=== PATIENT | male | born 1960 | race Caucasian/White ===

== ENCOUNTER → 2017-05-12 16:06 | Outpatient (CLI) | payer BC, SELFPAY ==
--- NOTE | 2017-05-12 12:01 | EGD_PTH ---
PATIENT: ADAN BERGMAN LOC: [facility] U#:[id number] AGE/SX: 64/M ROOM: RE05/12/[address]: Dr. Min Howard MD : 1960 BED: DIS: SPEC #: [id number] RECD: 05/12/17 15:35 STATUS: NYLA SANTOS #: [id number] GIANCARLO: 05/12/17 12:[address]: Min Howard DEPT: SURGICAL PATHOLOGY RECD BY: Derek Russell ENTERED: 05/15/17 10:36 SP TYPE: EGD BIOPSY OTHR DR: Dr. Chichi Narayan, [facility] Tissues: Esophageal mucous membrane Procedures: Surgery Specimen Level IV HEADER OPERATION: EGD with biopsies PRE-OP DIAGNOSIS: Dysphagia TISSUE SUBMITTED: Esophageal biopsies, rule out EE MICROSCOPIC DIAGNOSIS Esophagus, biopsy: Fragments of squamous mucosa with no significant pathologic change. AM:scar 05/16/17 COMMENT There is no evidence of eosinophilic esophagitis. Clinical correlation is suggested. MICROSCOPIC DESCRIPTION Slides are reviewed. GROSS DESCRIPTION Received in fixative is one container labeled with the patient's name and designated esophageal biopsy. The specimen consists of multiple irregular fragments of light hankins soft tissue that in aggregate measure 0.8 x 0.2 x 0.1 cm. The specimen is totally submitted in one cassette. / SJ:rg 05/15/17 TC:5 CPT: 87978
== END ==
PROVIDERS: Family Provider Internal Medicine; PCP Internal Medicine; Visit Provider Internal Medicine Gastroenterology
DX: R13.10 Dysphagia, unspecified (principal)
CPT/HCPCS: 88305

== ENCOUNTER → 2018-05-10 07:58 | Outpatient (CLI) | payer BC, SELFPAY ==
--- NOTE | 2018-05-10 08:02 | RAD_ITS ---
STUDY: X-RAY CHEST REASON FOR EXAM: Male, 57 years old. Cough. TECHNIQUE: PA and lateral views of the chest. COMPARISON: Comparison is made with prior study dated April 14, 2017. FINDINGS: Mild degree of increased linear markings at the lung bases suggestive of a filling atelectasis and/or mild scarring. There is no demonstrated pleural abnormality. Normal size heart. Normal mediastinum and ellen. Normal visualized pulmonary arteries. Normal visualized aortic arch and descending thoracic aorta. Normal visualized thoracic spine. Normal visualized ribs, clavicles, and shoulders. There is no demonstrated abnormality of the visualized soft tissue structures of the upper abdomen. RAD/Chest PA and Lateral IMPRESSION: Mild degree of increased linear markings at the lung bases suggestive of linear atelectasis and/or scarring. Electronically Signed: Young Lopez MD at 8:54 EST , Service support ,
== END ==
PROVIDERS: Family Provider Internal Medicine; PCP Internal Medicine; Referring Provider Nurse Practitioner Gerontology; Visit Provider Nurse Practitioner Gerontology
DX: R09.89 Other specified symptoms and signs involving the circulatory and respiratory systems (principal)
CPT/HCPCS: 71046

== ENCOUNTER → 2019-12-24 14:41 | Outpatient (CLI) | payer SELFPAY ==
[2019-12-24 14:52] VITALS: BP 130/52; PULSE 62; RESP 18; TEMP 36.6; O2SAT 95; BMI 30.1
--- NOTE | 2019-12-24 15:00 | CT_ITS ---
STUDY: CARDIAC CALCIUM SCORING - CT CHEST REASON FOR EXAM: Male, 59 years old. BOARDER LINE HIGH CHOLESTEROL. CHEST OVER READ ONLY RADIATION DOSAGE (If Supplied By Facility): CTDIvol = ( 12.19 ) mGy, DLP = ( 219.42 ) mGycm TECHNIQUE: Axial non-enhanced images were acquired through the heart for the sole purpose of measuring coronary artery calcium. Individualized dose optimization techniques were used for this CT. COMPARISON: None. FINDINGS: Visualized surrounding anatomy: Normal. Left Main Coronary Artery: 0 Left Anterior Descending Artery: 0 Left Circumflex Artery: 0 Right Coronary Artery: 0 Other: Mild calcification of the aortic valve Total Calcium Score: 0 CT/Limited Chest CT w/CCTA IMPRESSION: A Calcium Score of 0 places the patient in the approximate 0 percentile, based on the [employer] data calculator. Please go to: [email or web address] , for a description of the calculator. Electronically Signed: Juan Gamboa MD at 16:06 EDT , Service support ,
--- NOTE | 2019-12-24 17:15 | CA.SCORE ---
Calcium Scoring Date of Study:: 12/24/19 Coronary Calcium Scoring: High-resolution Computed Tomographic imaging of the chest was performed on [12/24/2019], with particular attention paid to the coronary arteries. Images from the examination were analyzed for the presence and extent of coronary artery calcification , using coronary calcium quantification software. The patient tolerated the procedure well and there were no complications. The results of the coronary calcification analysis are provided below. - Findings Left Main (LM): 0 Left Anterior Descending (LAD): 0 Left Circumflex (LCX): 0 Right Coronary Artery (RCA): 0 Total Agatston Score: 0 Calcium Scoring Interpretation: 0 No identifiable atherosclerotic plaque. Very low cardiovascular disease risk. <5% chance of presence coronary artery disease A Negative Examination 1-10 Minimal Plaque burden. Significant coronary artery disease very unlikely. 11-100 Mild plaque burden. Likely mild or minimal coronary atherosclerosis. 101-400 Moderate plaque burden Moderate non-obstructive coronary artery disease highly likely. Over 400 Extensive plaque burden. High likelihood of at least one significant coronary stenosis (>50% diameter) Calcium Score: 0 Negative Examination - The above is suggestive of no obstructive coronary disease. A full evaluation of cardiac risk factors should include a complete assessment of all risk factors.
== END ==
PROVIDERS: PCP Internal Medicine; Referring Provider Internal Medicine; Visit Provider Internal Medicine
DX: E78.00 Pure hypercholesterolemia, unspecified (principal)
CPT/HCPCS: 75571; 76380

== ENCOUNTER 2021-03-26 12:17 | Emergency (ER) | payer BC, SELFPAY ==
[2021-03-26 12:17] VITALS: BP 110/85; PULSE 64; RESP 20; TEMP 36.9; O2SAT 98; BMI 30.3
--- NOTE | 2021-03-26 12:33 | EKG12_ITS ---
Test Reason : CHEST PAIN Blood Pressure : / mmHG Vent. Rate : 062 BPM Atrial Rate : 062 BPM P-R Int : 244 ms QRS Dur : 110 ms QT Int : 390 ms P-R-T Axes : 033 004 -02 degrees QTc Int : 395 ms Sinus rhythm with 1st degree A-V block Otherwise normal ECG Confirmed by DK YU, GRADY ([id number]), slot editor RHONDA DOLAN ([id number]) on 03/29/2021 10:48:26 AM Referred By: TYE Confirmed By:GRADY ROOT MD
--- NOTE | 2021-03-26 12:35 | RAD_ITS ---
STUDY: X-RAY CHEST REASON FOR EXAM: Male, 60 years old. Chest pain TECHNIQUE: Single AP portable view of the chest. COMPARISON: Comparison is made with prior study dated 05/10/2018. FINDINGS: EKG electrodes are seen. The lungs are clear and expanded. There is no demonstrated pleural abnormality. Normal size heart. Normal mediastinum and ellen. Normal visualized pulmonary arteries. Normal visualized aortic arch and descending thoracic aorta. Normal visualized thoracic spine. Normal visualized ribs, clavicles, and shoulders. There is no demonstrated abnormality of the visualized soft tissue structures of the upper abdomen. RAD/Chest 1 View (Portable) IMPRESSION: Normal x-ray examination of the chest. Electronically Signed: Young Lopez MD at 13:08 EST , Service support ,
[2021-03-26 12:43] LABS: Absolute Lymphocyte Count 3.23 X10^3/uL (0.83-4.51); Absolute Neutrophil Count 6.1 X10^3/uL (2.0-7.7); Basophil# 0.04 X10^3/uL; Basophil% 0.4 % (0-1); Eosinophil# 0.34 X10^3/uL; Eosinophils% 3.2 % (0-5); Hematocrit 42.7 % (40-54); Hemoglobin 14.7 g/dL (13.0-16.5); Lymphocyte # 3.23 X10^3/ul (0.83-4.51); Lymphocyte % 30.3 % (19-41); Mean Corp Hgb Conc 34.4 g/dL (32-36); Mean Corpuscular Hgb 31.3 pg (27.0-32.0); Mean Platelet Vol. 9.1 fl (6.2-12.0); Monocyte# 0.94 X10^3/uL; Monocyte% 8.8 % (0-10); NRBC Flagged by Analyzer 0 % (0-5); Neutrophil # 6.08 X10^3/uL (2.7-7.7); Neutrophil % 56.9 % (47-70); Platelet Count 227 K/mm3 (150-450); RBC Distribution Width SD 39.8 fl (35.1-43.9); Red Blood Count 4.69 M/mm3 (4.6-6.2); White Blood Count 10.7 K/mm3 (4.4-11.0)
[2021-03-26 12:55] LABS: Anion Gap 5 (5-15); BUN 15 mg/dL (7-18); BUN/Creat Ratio 13.6 RATIO (10-20); Calcium,Total 9.4 mg/dL (8.5-10.1); Chloride 109 mmol/L (98-107); EST Glomerular Filtration Rate 72 mL/min (>60); Est Glom Filt Rate - Afr Amer 87 mL/min (>60); Estimated Creatinine Clearance 72.82 ml/min; Glucose 74 mg/dL (74-106); Potassium 3.8 mmol/L (3.5-5.1); Sodium Level 143 mmol/L (136-145); Troponin-I HS 11 pg/mL (3.0-78.0)
--- NOTE | 2021-03-26 13:07 | EDS_ITS ---
HPI History of Present Illness Chief Complaint: Chest Pain Narrative Narrative: 49-year-old male presenting with chest pressure which started last evening. He states it has been fairly constant overnight. He states it is a little bit better now. He denies a cardiac history. He states he takes Crestor for hyperlipidemia and Synthroid for hypothyroidism. He does follow-up with a primary care physician regularly and states he has not had any abnormal blood work. Patient is not lightheaded, diaphoretic, short of breath with this chest pain. No history of DVT/PE and no risk factors. PFSH PFS Medical History Chest pain Hypothyroidism Pneumonia Home Medications ivermectin 21 mg PO Q7D 03/26/21 [History Last Taken Unknown] levothyroxine 125 mcg PO DAILY 03/26/21 [History Last Taken Unknown] rosuvastatin [Crestor] 10 mg PO DAILY 03/26/21 [History Last Taken Unknown] Allergy/AdvReac Type Severity Reaction Status Date / Time No Known Allergies Allergy Verified 12/24/19 14:56 Surgical History History of appendectomy Social History Smoking Status: Never smoker ROS ROS ED Constitutional Constitutional ED: Denies chills or fever(s) Eyes Eyes: Denies blurry vision or change in vision ENT ENT ED: Denies rhinorrhea or sore throat Cardiovascular Cardiovascular: Reports as per HPI Respiratory/Chest Respiratory/Chest: Denies cough or dyspnea Gastrointestinal Gastrointestinal: Denies abdominal pain, nausea or vomiting Genitourinary Genitourinary ED: Denies dysuria or hematuria Musculoskeletal Musculoskeletal: Denies back pain, myalgias or neck pain Integumentary Denies rash Neurologic Neurologic: Denies headache(s) or paresthesias Psychiatric Psychiatric: Denies anxiety or depression EXAM Physical Exam Const Vital Signs: 03/26/21 12:17 03/26/21 12:24 03/26/21 12:41 Temperature 98.4 F Temperature Source Temporal Pulse Rate 64 Respiratory Rate 20 H Respiratory Effort Normal Non-Labored Blood Pressure 110/85 H Blood Pressure Mean 93 Pulse Ox 98 Oxygen Delivery Method Room Air Room Air 03/26/21 14:32 Temperature Temperature Source Pulse Rate 58 L Respiratory Rate 15 Respiratory Effort Blood Pressure 139/78 H Blood Pressure Mean 98 Pulse Ox 96 Oxygen Delivery Method Room Air Positive well nourished General Appearance ED: NAD; Negative for pallor HEENT Reports moist mucous membranes normocephalic and atraumatic Eyes PERRL and EOMs intact bilaterally Resp normal respiratory effort Effort and Inspection: respiratory distress Cardio regular rate and regular rhythm Extremity normal to inspection General Extremety ED: Negative for edema or tenderness General Extremity: Negative for edema Neuro oriented x3 and CN's II-XII intact bilaterally Sensorium / Orientation: awake and alert Psych mental status grossly normal Skin no rashes or lesions noted and no wounds General Skin Exam: Negative for jaundice or pallor Heart Score History: Slightly/Non-Suspicious ECG: Normal Age: >45 - <65 years Risk Factors: No Risk Factors Score: 1 MDM MDM MDM Narrative Medical decision making narrative: Patient presenting for chest pain which has been present since last night. Patient states that he does not have a cardiac history. EKG on my interpretation shows a normal sinus rhythm with a ventricular rate of 62 bpm with first-degree AV block. Chest x-ray my interpretation is no acute cardiopulmonary process and radiologist agree. CBC is within normal limits BMP is within normal limits D-dimer is negative. High- sensitivity troponin is 11 initially and the 2-hour delta troponin is 11. I feel this rules out ACS. Given patient's negative work-up I feel he safe to be discharged home. He will follow-up with his PCP outpatient. Impression: 1. Chest pain noncardiac Lab Data Labs: Laboratory Results - last 24 hr 03/26/21 03/26/21 03/26/21 12:20 12:20 12:20 WBC 10.7 RBC 4.69 Hgb 14.7 Hct 42.7 MCV 91.0 MCH 31.3 MCHC 34.4 RDW Std Deviation 39.8 RDW Coeff of Gray 12.0 Plt Count 227 MPV 9.1 Immature Gran % (Auto) 0.400 Neut % (Auto) 56.9 Lymph % (Auto) 30.3 [place] % (Auto) 8.8 Eos % (Auto) 3.2 Baso % (Auto) 0.4 Absolute Neuts (auto) 6.1 Absolute Lymphs (auto) 3.23 Nucleated RBC % 0 D-Dimer Quant (PE/DVT) 0.34 Sodium 143 Potassium 3.8 Chloride 109 H Carbon Dioxide 29.0 Anion Gap 5 BUN 15 Creatinine 1.10 Estim Creat Clear Calc 72.82 Est GFR (MDRD) Af Amer 87 Est GFR (MDRD) Non-Af 72 BUN/Creatinine Ratio 13.6 Glucose 74 Calcium 9.4 Troponin I High Sens 11 03/26/21 14:39 WBC RBC Hgb Hct MCV MCH MCHC RDW Std Deviation RDW Coeff of Gray Plt Count MPV Immature Gran % (Auto) Neut % (Auto) Lymph % (Auto) [place] % (Auto) Eos % (Auto) Baso % (Auto) Absolute Neuts (auto) Absolute Lymphs (auto) Nucleated RBC % D-Dimer Quant (PE/DVT) Sodium Potassium Chloride Carbon Dioxide Anion Gap BUN Creatinine Estim Creat Clear Calc Est GFR (MDRD) Af Amer Est GFR (MDRD) Non-Af BUN/Creatinine Ratio Glucose Calcium Troponin I High Sens 11 Radiography Diagnostic Testing: Clinical Impression(s) from Imaging Studies Chest X-Ray 03/26/21 12:35 IMPRESSION: Normal x-ray examination of the chest. Electronically Signed: Young Lpoez MD at 13:08 EST , Service support , Discharge Plan Triage Chief Complaint: Chest Pain ED Provider: Demetrius Healy Dx/Rx/DC Orders Instructions: ED Chest Pain, Noncardiac Prescriptions: No Action levothyroxine 125 mcg tablet 125 mcg PO DAILY RF: 0 ivermectin 6 mg Tablet 21 mg PO Q7D RF: 0 rosuvastatin [Crestor] 10 mg tablet 10 mg PO DAILY RF: 0 Primary Care Provider: Chichi Narayan Referrals: Chichi Narayan DO [Primary Care Provider] - Disposition Disposition: Home, Self Care
[2021-03-26 13:18] LABS: D-Dimer Quantitative (DVT/PE) 0.34 FEU/ug/m (0.27-0.49)
[2021-03-26 14:32] VITALS: BP 139/78; PULSE 58; RESP 15; O2SAT 96
[2021-03-26 15:00] LABS: Troponin-I HS 11 pg/mL (3.0-78.0)
[2021-03-26 15:20] VITALS: BP 150/78; PULSE 81; RESP 16; O2SAT 99
== END 2021-03-26 15:21 | disposition home or self-care (01) ==
PROVIDERS: Emergency Provider Student in an Organized Health Care Education/Training Program; PCP Internal Medicine
DX: R07.89 Other chest pain (principal); I44.0 Atrioventricular block, first degree; E03.9 Hypothyroidism, unspecified; E78.5 Hyperlipidemia, unspecified
CPT/HCPCS: 71045; 80048; 84484; 85025; 85379; 93005; 99285; A4216

== ENCOUNTER 2021-03-27 15:08 | Emergency (ER) | payer BC, SELFPAY ==
[2021-03-27 15:09] VITALS: BP 180/93; PULSE 72; RESP 16; TEMP 36.1; O2SAT 98; BMI 30.1
--- NOTE | 2021-03-27 15:24 | EKG12_ITS ---
Test Reason : RIOS Blood Pressure : / mmHG Vent. Rate : 051 BPM Atrial Rate : 051 BPM P-R Int : 230 ms QRS Dur : 112 ms QT Int : 412 ms P-R-T Axes : 051 006 003 degrees QTc Int : 379 ms Sinus bradycardia with marked sinus arrhythmia with 1st degree A-V block Otherwise normal ECG Confirmed by DK YU, GRADY ([id number]), clinical editor RHONDA DOLAN ([id number]) on 03/29/2021 9:11:32 AM Referred By: GURPREET Confirmed By:GRADY ROOT MD
--- NOTE | 2021-03-27 15:25 | EX.ED.VIS.HA ---
HPI History of Present Illness Chief Complaint: Headache Detail of Chief Complaint: Head ache that started yesterday evening Informant: patient Narrative Narrative: Patient presents to the emergency department chief complaint of a headache that started last evening. Patient states that this morning he took some Aleve and that did not resolve it took Aleve this afternoon and continues to have a diffuse headache. Patient also complains of some discomfort into the roof of his mouth and into his neck with a headache. He denies any falls or head injuries. Headache came on gradually. Patient typically does not get headaches or migraines. Sounds seem to bother it. He denies photophobia or nausea or vomiting. Patient incidentally was seen in the emergency department last evening for chest pain. Patient had a negative work-up at that time. Patient denies recent illness. He denies fevers. Patient denies any falls or head injuries. Patient does state he has been under more stress of late. Prior similar symptoms: No PFSH PFSH Medical History Chest pain Hypothyroidism Pneumonia Home Medications ivermectin 21 mg PO Q7D 03/26/21 [History Last Taken Unknown] levothyroxine 125 mcg PO DAILY 03/26/21 [History Last Taken Unknown] rosuvastatin [Crestor] 10 mg PO DAILY 03/26/21 [History Last Taken Unknown] cyclobenzaprine 10 mg PO TID PRN #20 tablet 03/27/21 [Rx Last Taken Unknown] Allergy/AdvReac Type Severity Reaction Status Date / Time No Known Allergies Allergy Verified 03/27/21 15:12 Surgical History History of appendectomy Social History Smoking Status: Former smoker ROS ROS ED Constitutional Constitutional ED: Reports systems reviewed and no addt'l complaints, except as documented; Denies body ache(s), change in weight or chills Eyes Eyes: Denies acute decrease in peripheral vision, change in vision, double vision or loss of vision ENT ENT ED: Reports none; Denies ear pain, lip swelling, loss taste/smell, neck pain, otalgia or sore throat Cardiovascular Cardiovascular: Reports none; Denies abdominal pain, chest pain with activity, leg edema, lightheadedness, palpitations, rapid heart rate or syncope Respiratory/Chest Respiratory/Chest: Reports none; Denies change in mental status, dry cough, dyspnea, hemoptysis, shortness of breath at rest or shortness of breath with exertion Gastrointestinal Gastrointestinal: Reports none; Denies abdominal pain, change in stool character, diarrhea, hematemesis, hematochezia, melena, rectal bleeding or vomiting Genitourinary Genitourinary ED: Reports none; Denies abdominal discomfort, anuria, dysuria, genital pain or polyuria Musculoskeletal Musculoskeletal: Reports none; Denies arthralgias, back pain, difficulty walking, extremity pain, muscle weakness or myalgias Integumentary Reports none; Denies abscess or rash Neurologic Neurologic: Reports none and headache(s); Denies abnormal gait, confusion, focal weakness, frequent falls, loss of vision, numbness, paresthesias, radicular pain, vertigo or weakness Psychiatric Psychiatric: Reports systems reviewed and no addt'l complaints, except as documented and none; Denies behavioral changes, confusion, difficulty concentrating, hallucinations, suicidal ideation, tactile hallucinations or visual hallucinations Endocrine Endocrinology: Denies none, cold intolerance, excessive sweating, fatigue or heat intolerance Hematologic/Lymphatic Hematologic/Lymphatic: Reports none; Denies anemia, easy bleeding or easy bruising Allergic/Immunologic Allergic/Immunologic ED: Denies as per HPI, none, lip swelling, mouth swelling, throat swelling, tongue swelling or hives EXAM Physical Exam Const Vital Signs: 03/27/21 15:09 03/27/21 17:05 Temperature 97.0 F L Temperature Source Temporal Pulse Rate 72 68 Respiratory Rate 16 18 Blood Pressure 180/93 H 164/80 H Blood Pressure Mean 122 108 Pulse Ox 98 98 Oxygen Delivery Method Room Air Room Air Positive well nourished and well developed General Appearance ED: well developed and NAD HEENT Reports TM's clear and moist mucous membranes normocephalic and atraumatic; Negative for trauma or tenderness Tympanic Membrane ED: Yes TM's clear Eyes PERRL and EOMs intact bilaterally General Eye ED: Negative for pale conjunctiva or scleral icterus Neck no lymphadenopathy, supple and no JVD General: Negative for tenderness Chest Wall inspection of chest normal and palpation of chest normal Chest: Negative for tenderness Resp normal respiratory effort and clear to auscultation bilaterally Effort and Inspection: Negative for respiratory distress or pain with movement Auscultation: Negative for rhonchi, wheezes or diminished lung sounds Cardio regular rate, regular rhythm, S1 normal heart sound, S2 normal heart sound and no murmurs Peripheral Pulses: pulses 2+ throughout GI normal to inspection, nondistended, normoactive bowel sounds, soft to palpation, non-tender, non-distended and no masses Back/Spine no CVA tenderness and no thoracic nor lumbar tenderness Extremity normal to inspection General Extremety ED: Negative for edema General Extremity: Negative for edema Neuro oriented x3, CN's II-XII intact bilaterally, no sensory deficits noted and gait normal Neuro Narrative: Finger-nose and heel reed testing within normal limits, negative Romberg, negative for drift, fundi benign Sensorium / Orientation: awake, alert, oriented to person, oriented to place and oriented to time Motor Exam: strength 5/5 throughout and strength abnormal Psych mental status grossly normal Skin no rashes or lesions noted and no wounds MDM MDM MDM Narrative Medical decision making narrative: IV line established on arrival. Patient had an EKG obtained which was unremarkable. Troponin was negative. I medicated with Reglan, Benadryl, and Toradol and he had some pain relief from a headache a 7 out of 10 on a 4 out of 10. Patient still concerned about this being a different headache and one of the worst headaches he has ever had as he does not typically get headaches. He was worried about brain aneurysm. There is no family history of aneurysms. I did obtain a CTA of the head and neck which was normal. At this point patient will be discharged to home and will started him on some Flexeril I suspect this may be more tension type headache. Patient advised to follow-up with his primary care physician within next 3 to 5 days. Lab Data Attestation: I reviewed the patient's lab results. Labs: Laboratory Results - last 24 hr 03/27/21 15:38 Troponin I High Sens 12 Radiography Diagnostic Testing: Clinical Impression(s) from Imaging Studies Head/Neck CTA 03/27/21 16:23 IMPRESSION: Negative head/brain CT without intravenous contrast. Electronically Signed: Miguel Angel Zamarripa MD ([place]) at 17:33 EST , Service support , EKG Initial EKG: Comments: Sinus rhythm with a ventricular rate of 51 bpm with first-degree AV block Prior EKG tracings: available for review Prior: Unchanged Discharge Plan Triage Chief Complaint: Headache ED Provider: Breanne Grace Dx/Rx/DC Orders Clinical Impression: Headache Instructions: ED Headache, Tension Prescriptions: New cyclobenzaprine [cyclobenzaprine] 10 MG tablet 10 mg PO TID PRN (Reason: Muscle Spasm) Qty: 20 RF: 0 No Action levothyroxine 125 mcg tablet 125 mcg PO DAILY RF: 0 ivermectin 6 mg Tablet 21 mg PO Q7D RF: 0 rosuvastatin [Crestor] 10 mg tablet 10 mg PO DAILY RF: 0 Primary Care Provider: Chichi Narayan Referrals: Chichi Narayan DO [Primary Care Provider] - 3-5 Days Disposition Disposition: Home, Self Care
[2021-03-27] MEDS: Ketorolac 15 MG/ML Vial IV (15:36)
[2021-03-27] MEDS: 0.9% Normal Saline 1,000 ML 1000 ML IV (15:37)
[2021-03-27] MEDS: Metoclopramide 10 MG/2 ML Vial IV (15:37)
[2021-03-27] MEDS: DiphenhydrAMINE 50 MG/ML Syringe 25 MG IV (15:37)
[2021-03-27 16:09] LABS: Troponin-I HS 12 pg/mL (3.0-78.0)
--- NOTE | 2021-03-27 16:23 | CT_ITS ---
EXAM: CT ANGIOGRAPHY HEAD AND NECK WITH INTRAVENOUS CONTRAST CLINICAL INDICATION: headache, vertigo TECHNIQUE: [place]/head and neck CT angiography protocol performed with intravenous contrast. This CT exam was performed using one or more of the following dose reduction techniques: automated exposure control, adjustment of the mA and/or kV according to patient size, and/or use of iterative reconstruction technique. This report was created using [employer] report generation technology. MIP reconstructed images were created and reviewed. CONTRAST: IV 100mL Isovue-370 COMPARISON: None. FINDINGS: HEAD: RIGHT ANTERIOR CEREBRAL ARTERY: Unremarkable. No significant stenosis at the visualized segments. Anterior communicating artery is present. No aneurysm. RIGHT MIDDLE CEREBRAL ARTERY: Unremarkable. No significant stenosis at the visualized segments. No aneurysm. RIGHT POSTERIOR CEREBRAL ARTERY: Unremarkable. No occlusion or significant stenosis. No aneurysm. LEFT ANTERIOR CEREBRAL ARTERY: Unremarkable. No significant stenosis at the visualized segments. No aneurysm. LEFT MIDDLE CEREBRAL ARTERY: Unremarkable. No significant stenosis at the visualized segments. No aneurysm. LEFT POSTERIOR CEREBRAL ARTERY: Unremarkable. No occlusion or significant stenosis. No aneurysm. BASILAR ARTERY: Unremarkable. No significant stenosis. No aneurysm. GREAT VESSELS OF AORTIC ARCH: Bovine aortic arch anatomy. OTHER VASCULATURE: No vascular malformation. NECK: RIGHT COMMON CAROTID ARTERY: Unremarkable. No significant stenosis. No dissection or occlusion. RIGHT INTERNAL CAROTID ARTERY: Calcific atherosclerosis of the right proximal ICA with minimal (10%) stenosis. No dissection or occlusion. RIGHT EXTERNAL CAROTID ARTERY: Unremarkable. No occlusion. RIGHT VERTEBRAL ARTERY: Unremarkable. No significant stenosis. No dissection or occlusion. LEFT COMMON CAROTID ARTERY: Unremarkable. No significant stenosis. No dissection or occlusion. LEFT INTERNAL CAROTID ARTERY: Calcific atherosclerosis of the proximal left ICA with minor (20%) stenosis. No dissection or occlusion. LEFT EXTERNAL CAROTID ARTERY: Unremarkable. No occlusion. LEFT VERTEBRAL ARTERY: Unremarkable. No significant stenosis. No dissection or occlusion. LUNG APICES: Unremarkable as visualized. SOFT TISSUES: Unremarkable. CAROTID STENOSIS REFERENCE USING NASCET CRITERIA: % ICA stenosis = (1 - narrowest ICA diameter/diameter of distal cervical ICA) x 100. Mild - <50% stenosis. Moderate - 50-69% stenosis. Severe - 70-94% stenosis. Near occlusion - 95-99% stenosis. Occluded - 100% stenosis. IMPRESSION: No acute findings in the arteries of the head and neck. EXAM: CT HEAD WITHOUT INTRAVENOUS CONTRAST CLINICAL INDICATION: headache, vertigo TECHNIQUE: Multiple axial images were obtained of the head without intravenous contrast. This CT exam was performed using one or more of the following dose reduction techniques: automated exposure control, adjustment of the mA and/or kV according to patient size, and/or use of iterative reconstruction technique. This report was created using [employer] report generation technology. Coronal and sagittal reformatted images were created and reviewed. CONTRAST: IV 100mL Isovue-370 COMPARISON: None. FINDINGS: BRAIN AND EXTRA-AXIAL SPACES: Unremarkable. No intra- or extra-axial hemorrhage. No evidence of acute infarct. No intracranial mass or mass effect. There is preservation of the lorenzo/white matter interface. Posterior fossa structures are unremarkable. Ventricles are appropriate for age. No hydrocephalus. Basal cisterns are patent. BONES/JOINTS: Unremarkable. No discrete lytic or blastic abnormalities. SINUSES: Unremarkable as visualized. Clear. MASTOID AIR CELLS: Unremarkable. Clear. ORBITS: Visualized globes, extraocular muscles, optic nerves and retrobulbar fat appear unremarkable. CT/CTA Head AND Neck W/ Contrast IMPRESSION: Negative head/brain CT without intravenous contrast. Electronically Signed: Miguel Angel Zamarripa MD ([place]) at 17:33 EST , Service support ,
[2021-03-27 17:05] VITALS: BP 164/80; PULSE 68; RESP 18; O2SAT 98
[2021-03-27 17:52] VITALS: BP 102/77; PULSE 62; RESP 15; O2SAT 98
== END 2021-03-27 17:53 | disposition home or self-care (01) ==
PROVIDERS: Emergency Provider Emergency Medicine; PCP Internal Medicine
DX: R51.9 Headache, unspecified (principal); I44.0 Atrioventricular block, first degree; E03.9 Hypothyroidism, unspecified; Z87.891 Personal history of nicotine dependence
CPT/HCPCS: 70496; 70498; 84484; 93005; 96361; 96374; 96375; 99283; J7030; Q9967; A4216

== ENCOUNTER 2021-04-30 03:36 | Emergency (ER) | payer BC, SELFPAY ==
[2021-04-30 03:36] VITALS: BP 191/93
[2021-04-30 03:37] VITALS: PULSE 70; RESP 18; TEMP 36.7; O2SAT 96; BMI 31.8
--- NOTE | 2021-04-30 04:00 | EKG12_ITS ---
Test Reason : CP Blood Pressure : / mmHG Vent. Rate : 059 BPM Atrial Rate : 059 BPM P-R Int : 252 ms QRS Dur : 110 ms QT Int : 408 ms P-R-T Axes : 027 007 006 degrees QTc Int : 403 ms Sinus bradycardia with 1st degree A-V block Inferior infarct , age undetermined Abnormal ECG Confirmed by THONG YU, MURRAY ([id number]), editorial director ELIAS SHAFER ([id number]) on 04/30/2021 1:27:26 PM Referred By: STONEY Confirmed By:MURRAY BENITO MD
--- NOTE | 2021-04-30 04:00 | EKG12_ITS ---
Test Reason : CP Blood Pressure : / mmHG Vent. Rate : 065 BPM Atrial Rate : 065 BPM P-R Int : 244 ms QRS Dur : 110 ms QT Int : 412 ms P-R-T Axes : 056 007 007 degrees QTc Int : 428 ms Sinus rhythm with sinus arrhythmia with 1st degree A-V block Inferior infarct , age undetermined Abnormal ECG Confirmed by THONG YU, MURRAY ([id number]), offline editor ELIAS SHAFER ([id number]) on 04/30/2021 1:27:00 PM Referred By: STONEY Confirmed By:MURRAY BENITO MD
--- NOTE | 2021-04-30 04:00 | RAD_ITS ---
EXAM: XR CHEST, 1 VIEW : 1960 CLINICAL INDICATION: chest pain TECHNIQUE: Frontal view of the chest. This report was created using [facility] report generation technology. COMPARISON: 03/26/21 FINDINGS: LUNGS AND PLEURAL SPACES: Unremarkable. No consolidation or edema. No pneumothorax. No effusion. HEART: Unremarkable. Cardiac silhouette not enlarged. MEDIASTINUM: Central airways and mediastinal contour are unremarkable. BONES/JOINTS: Unremarkable. SOFT TISSUES: Unremarkable. RAD/Chest 1 View (Portable) IMPRESSION: No radiographic evidence of acute cardiopulmonary disease. at 0423 Reported and signed by: Víctor Roldan MD Electronically Signed: Víctor Roldan MD at 4:22 EST Tel , Service support ,
--- NOTE | 2021-04-30 04:00 | ED.VIS.CHEST ---
HPI History of Present Illness Chief Complaint: Chest Pain Informant: patient and spouse/S.O. Narrative Narrative: 60-year-old male with a history of hypercholesterolemia and hypothyroidism presenting to the emergency room for evaluation of chest pain. Patient states that he was awoken out of sleep at approximately 0200 hours with diffuse chest pressure radiating into the shoulders and neck. He also notes some discomfort in between his shoulder blades. He denies any other arm or leg symptoms. No nausea vomiting shortness of breath or sweating. He states its been years since he had a stress test. He is a non-smoker. He notes a familial history of coronary artery disease in his father. No DVT PE risk factors. [facility] Medical History Chest pain Hypothyroidism Pneumonia Home Medications levothyroxine 125 mcg PO DAILY 03/26/21 [History Last Taken Unknown] rosuvastatin [Crestor] 10 mg PO DAILY 03/26/21 [History Last Taken Unknown] Allergy/AdvReac Type Severity Reaction Status Date / Time No Known Allergies Allergy Verified 04/30/21 03:40 Surgical History History of appendectomy Social History (Updated 04/30/21 @ 04:[address] Praveen Tripp DO) Smoking Status: Former smoker substance use type: does not use ROS ROS ED Constitutional Constitutional ED: Denies chills, fever(s) or weight loss Eyes Eyes: Denies change in vision or diplopia ENT ENT ED: Denies ear pain, rhinorrhea or sore throat Cardiovascular Cardiovascular: Reports chest pain; Denies orthopnea, palpitations or racing heartbeat Respiratory/Chest Respiratory/Chest: Denies cough, dyspnea or orthopnea Gastrointestinal Gastrointestinal: Denies abdominal pain, diarrhea, nausea or vomiting Genitourinary Genitourinary ED: Denies dysuria, hematuria or urinary frequency Musculoskeletal Musculoskeletal: Denies arthralgias or myalgias Integumentary Denies abscess or rash Neurologic Neurologic: Denies headache(s) or weakness Psychiatric Psychiatric: Denies anxiety, depression, suicidal ideation or suicidal thoughts Endocrine Endocrinology: Denies polydipsia, polyphagia or polyuria Allergic/Immunologic Allergic/Immunologic ED: Denies mouth swelling, tongue swelling or urticaria EXAM Physical Exam Const Vital Signs: 04/30/21 03:36 04/30/21 03:37 04/30/21 04:16 Temperature 98.0 F Temperature Source Oral Pulse Rate 70 64 Respiratory Rate 18 Blood Pressure 191/93 H 161/84 H Blood Pressure Mean 125 Pulse Ox 96 Oxygen Delivery Method Room Air 04/30/21 04:21 04/30/21 04:31 Temperature Temperature Source Pulse Rate 75 67 Respiratory Rate 18 Blood Pressure 136/80 H 144/81 H Blood Pressure Mean 102 Pulse Ox 92 Oxygen Delivery Method Room Air Positive well nourished and well developed General Appearance ED: well developed HEENT Reports normocephalic, head/scalp atraumatic, TM's clear and moist mucous membranes normocephalic and atraumatic Tympanic Membrane ED: Yes TM's clear Eyes PERRL and EOMs intact bilaterally Neck no lymphadenopathy, supple and no JVD Chest Wall inspection of chest normal and palpation of chest normal Chest: Negative for tenderness Resp normal respiratory effort and clear to auscultation bilaterally Cardio regular rate, regular rhythm and no murmurs GI normal to inspection, nondistended, normoactive bowel sounds and non-tender Palpation: soft Back/Spine no CVA tenderness and normal ROM Extremity normal to inspection General Extremety ED: Negative for edema General Extremity: Negative for edema Neuro oriented x3 and CN's II-XII intact bilaterally Sensorium / Orientation: alert Motor Exam: strength 5/5 throughout Psych mental status grossly normal Mood & Affect: Negative for depressed or tearful Skin no rashes or lesions noted and no wounds Heart Score History: Moderately Suspicious ECG: Normal Age: >45 - <65 years Risk Factors: 1 or 2 Risk Factors Troponin: </= Normal Limit Score: 3 MDM MDM MDM Narrative Medical decision making narrative: My interpretation of the chest x-ray is no acute disease normal mediastinal silhouette. Patient's blood pressure has come down to a more appropriate range. D-dimer is normal. 2 sets of cardiac enzymes are at 21 and 17 for the high-sensitivity troponin I. Patient received nitroglycerin as well as a dose of Toradol. At this point I do not see evidence of PE ACS and I do not believe the patient is having dissection. Patient will be discharged home to arrange follow-up stress test. Lab Data Labs: Laboratory Results - last 24 hr 04/30/21 04/30/2104/30/22 03:46 03:46 03:46 WBC 8.9 RBC 4.40 L Hgb 13.6 Hct 39.7 L MCV 90.2 MCH 30.9 MCHC 34.3 RDW Std Deviation 40.5 RDW Coeff of Gray 12.4 Plt Count 216 MPV 9.3 Immature Gran % (Auto) 0.300 Neut % (Auto) 53.2 Lymph % (Auto) 34.7 [place] % (Auto) 8.5 Eos % (Auto) 2.9 Baso % (Auto) 0.4 Absolute Neuts (auto) 4.7 Absolute Lymphs (auto) 3.09 Nucleated RBC % 0 D-Dimer Quant (PE/DVT) <= 0.27 Sodium 143 Potassium 3.7 Chloride 108 H Carbon Dioxide 29.0 Anion Gap 6 BUN 19 H Creatinine 1.17 Estim Creat Clear Calc 68.46 Est GFR (MDRD) Af Amer 81 Est GFR (MDRD) Non-Af 67 BUN/Creatinine Ratio 16.2 Glucose 99 Calcium 9.1 Troponin I High Sens 21 04/30/21 05:40 WBC RBC Hgb Hct MCV MCH MCHC RDW Std Deviation RDW Coeff of Gray Plt Count MPV Immature Gran % (Auto) Neut % (Auto) Lymph % (Auto) [place] % (Auto) Eos % (Auto) Baso % (Auto) Absolute Neuts (auto) Absolute Lymphs (auto) Nucleated RBC % D-Dimer Quant (PE/DVT) Sodium Potassium Chloride Carbon Dioxide Anion Gap BUN Creatinine Estim Creat Clear Calc Est GFR (MDRD) Af Amer Est GFR (MDRD) Non-Af BUN/Creatinine Ratio Glucose Calcium Troponin I High Sens 17 Radiography Diagnostic Testing: Clinical Impression(s) from Imaging Studies Chest X-Ray 04/30/21 04:00 IMPRESSION: No radiographic evidence of acute cardiopulmonary disease. at 0423 Reported and signed by: Víctor Roldan MD Electronically Signed: Víctor Roldan MD at 4:22 EST Tel , Service support , EKG Initial EKG: Attestation: I personally reviewed and interpreted this EKG as follows: Comments: Sinus rhythm with first-degree AV block and a ventricular rate of 65 bpm Follow-up EKG: Attestation: I personally reviewed and interpreted this EKG as follows: Comments: Repeat EKG shows no significant changes from the first. Sinus rhythm with a first-degree block with a ventricular rate of 59 bpm Discharge Plan Triage Chief Complaint: Chest Pain ED Provider: Praveen Tripp Dx/Rx/DC Orders Clinical Impression: Chest pain Instructions: ED Chest Pain, Uncertain Cause Prescriptions: No Action levothyroxine 125 mcg tablet 125 mcg PO DAILY RF: 0 rosuvastatin [Crestor] 10 mg tablet 10 mg PO DAILY RF: 0 Primary Care Provider: Chichi Narayan Referrals: Chichi Narayan DO [Primary Care Provider] - As soon as possible (To help us arrange a stress test.) Disposition Disposition: Home, Self Care
[2021-04-30 04:07] LABS: Absolute Lymphocyte Count 3.09 X10^3/uL (0.83-4.51); Absolute Neutrophil Count 4.7 X10^3/uL (2.0-7.7); Basophil# 0.04 X10^3/uL; Basophil% 0.4 % (0-1); Eosinophil# 0.26 X10^3/uL; Eosinophils% 2.9 % (0-5); Hematocrit 39.7 % (40-54); Hemoglobin 13.6 g/dL (13.0-16.5); Lymphocyte # 3.09 X10^3/ul (0.83-4.51); Lymphocyte % 34.7 % (19-41); Mean Corp Hgb Conc 34.3 g/dL (32-36); Mean Corpuscular Hgb 30.9 pg (27.0-32.0); Mean Corpuscular Volume 90.2 fL (80-94); Mean Platelet Vol. 9.3 fl (6.2-12.0); Monocyte# 0.76 X10^3/uL; Monocyte% 8.5 % (0-10); NRBC Flagged by Analyzer 0 % (0-5); Neutrophil # 4.73 X10^3/uL (2.7-7.7); Neutrophil % 53.2 % (47-70); Platelet Count 216 K/mm3 (150-450); RBC Distribution Width CV 12.4 % (11.6-14.6); RBC Distribution Width SD 40.5 fl (35.1-43.9); White Blood Count 8.9 K/mm3 (4.4-11.0)
[2021-04-30 04:15] LABS: D-Dimer Quantitative (DVT/PE) <= 0.27 FEU/ug/m (0.27-0.49)
[2021-04-30 04:16] VITALS: BP 161/84; PULSE 64
[2021-04-30] MEDS: Nitroglycerin SL (ED/IMG/CATH) 0.4 MG TABLET SL ×2 (04:16→04:21)
[2021-04-30 04:20] LABS: Anion Gap 6 (5-15); BUN 19 mg/dL (7-18); BUN/Creat Ratio 16.2 RATIO (10-20); Calcium,Total 9.1 mg/dL (8.5-10.1); Chloride 108 mmol/L (98-107); Creatinine, Serum 1.17 mg/dL (0.70-1.30); EST Glomerular Filtration Rate 67 mL/min (>60); Est Glom Filt Rate - Afr Amer 81 mL/min (>60); Estimated Creatinine Clearance 68.46 ml/min; Glucose 99 mg/dL (74-106); Potassium 3.7 mmol/L (3.5-5.1); Sodium Level 143 mmol/L (136-145); Troponin-I HS 21 pg/mL (3.0-78.0)
[2021-04-30 04:21] VITALS: BP 136/80; PULSE 75
[2021-04-30 04:31] VITALS: BP 144/81; PULSE 67; RESP 18; O2SAT 92
[2021-04-30] MEDS: Ketorolac 30 MG/ML Syringe IV (04:52)
[2021-04-30 06:05] LABS: Troponin-I HS 17 pg/mL (3.0-78.0)
[2021-04-30 06:19] VITALS: BP 150/80; PULSE 62; RESP 13; O2SAT 95
== END 2021-04-30 06:20 | disposition home or self-care (01) ==
PROVIDERS: Emergency Provider Emergency Medicine; PCP Internal Medicine; Visit Provider Emergency Medicine
DX: R07.9 Chest pain, unspecified (principal); E78.00 Pure hypercholesterolemia, unspecified; E03.9 Hypothyroidism, unspecified; Z87.891 Personal history of nicotine dependence; Z79.899 Other long term (current) drug therapy
CPT/HCPCS: 71045; 80048; 84484; 85025; 85379; 93005; 96374; 99285; A4216

== ENCOUNTER 2021-05-07 07:39 | Outpatient (CLI) | payer BC, SELFPAY ==
--- NOTE | 2021-05-07 07:45 | RAD_ITS ---
STUDY: X-RAY - ESOPHAGUS (BARIUM SWALLOW) WITH FLUOROSCOPY REASON FOR EXAM: Male, 60 years old. DYSPHAGIA TECHNIQUE: 14 view(s) of the esophagus were obtained following swallowing of barium. FLUOROSCOPY TIME (if supplied): (24 seconds) minutes/seconds COMPARISON: Comparison is made with prior study dated 02/21/2017. FINDINGS: There is no demonstrated esophageal foreign body. There is no demonstrated stricture or mucosal abnormality. Normal gastroesophageal junction, without a demonstrated hiatal hernia. Patient ingested a 12 mm tablet of barium without any difficulty. Normal visualized aortic arch and descending thoracic aorta. Normal visualized pulmonary parenchyma. Normal visualized osseous structures of the thorax. RAD/Esophagus Dual Contrast IMPRESSION: Normal plain film x-ray examination (barium swallow) of the esophagus. Electronically Signed: Young Lopez MD at 9:15 EST ,
== END 2021-05-07 23:59 | disposition short-term general hospital (02) ==
LOC: RAD 07:41
PROVIDERS: PCP Internal Medicine; Referring Provider Internal Medicine; Visit Provider Internal Medicine
DX: R07.9 Chest pain, unspecified (principal); R13.10 Dysphagia, unspecified
CPT/HCPCS: 74221

== ENCOUNTER 2021-06-03 06:39 | Outpatient (CLI) | payer BC, SELFPAY ==
--- NOTE | 2021-06-03 10:05 | STRESSREP ---
Stress Test Report Date: 06-03-2021 Procedure: Exercise tolerance test/imaging study Indications: Chest pain Consent: Per the patient Procedure: The patient exercised on a Rod protocol for 7 minutes and 17 seconds completing Stage II and 1 minute and 17 seconds of Stage III achieving a peak heart rate of 133 bpm (83% predicted maximal heart rate) with a peak blood pressure 220/82 mmHg and a peak MET capacity of 10 METs. Blood pressure: Normal resting blood pressure-exaggerated response. The baseline ECG demonstrated normal sinus rhythm; poor R wave progression. The peak exercise ECG demonstrated no obvious ECG changes. There were no cardiac dysrhythmias pretest, during exercise, or recovery. The functional capacity was considered good. There was no complaint of chest discomfort during exercise or recovery. The examination was discontinued secondary to dyspnea. Impression: 1. Technically adequate (percent predicted maximal heart rate greater than 85%) exercise tolerance test 2. Blood pressure: Normal resting blood pressure-exaggerated response 3. Peak exercise ECG no obvious ECG changes 4. There were no cardiac dysrhythmias pretest, during exercise, or recovery 5. Nuclear images pending Myocardial perfusion imaging study: Technique: The patient was injected with 14.7 mCi of technetium 99m Cardiolite and subsequently rest SPECT Cardiolite nuclear imaging was obtained in the horizontal long, vertical long, and short axis views. The patient exercised on a Rod protocol for 7 minutes and 17 seconds completing Stage II and 1 minute and 17 seconds of Stage III achieving a peak heart rate of 133 bpm (83% predicted maximal heart rate) with a peak blood pressure 220/82 mmHg and a peak MET capacity of 10 METs. The patient was injected with 44.3 mCi of technetium 99m Cardiolite and subsequently stress SPECT Cardiolite nuclear imaging was obtained in the horizontal long, vertical long, and short axis views. A gated Cardiolite study at peak stress was obtained. Interpretation: Rest and stress SPECT Cardiolite nuclear imaging status post realignment, normalization, and attenuation correction, demonstrates the appearance of relative uniform tracer uptake and myocardial perfusion appearing within normal limits. There is end systolic thickening and brightening. The gated Cardiolite study demonstrates myocardial thickening and inward wall motion. The reported LVEF is 66%. Impression: 1. Rest and stress SPECT Cardiolite nuclear imaging demonstrate relative uniform tracer uptake and myocardial perfusion appearing within normal limits. 2. The gated Cardiolite study reports an LVEF of 66%. This note was generated with Dragon dictation software. It may contain incorrect words, spelling, and punctuation that were not noted in checking the note before signing.
== END 2021-06-03 23:59 | disposition home or self-care (01) ==
LOC: CVS 06:42
PROVIDERS: PCP Internal Medicine; Referring Provider Internal Medicine; Visit Provider Internal Medicine
DX: R07.9 Chest pain, unspecified (principal); R13.10 Dysphagia, unspecified
CPT/HCPCS: 78452; 93017; A9500; A4216

== ENCOUNTER 2023-08-16 13:17 | Emergency (ER) | payer OTHER, SELFPAY ==
[2023-08-16 13:18] VITALS: BP 186/73; PULSE 56; RESP 16; TEMP 36.5; O2SAT 92; BMI 33.9
[2023-08-16 14:02] VITALS: BP 155/71; PULSE 59; RESP 16; O2SAT 92
[2023-08-16] MEDS: Meclizine HCl 25 MG Tablet PO (14:32)
[2023-08-16 14:44] LABS: Absolute Neutrophil Count 9.5 X10^3/uL (2.0-7.7); Basophil# 0.03 X10^3/uL; Basophil% 0.3 % (0-1); Eosinophil# 0.06 X10^3/uL; Eosinophils% 0.5 % (0-5); Hematocrit 40.9 % (40-54); Hemoglobin 13.7 g/dL (13.0-16.5); Lymphocyte % 11.2 % (19-41); Mean Corp Hgb Conc 33.5 g/dL (32-36); Mean Corpuscular Volume 89.5 fL (80-94); Mean Platelet Vol. 9.3 fl (6.2-12.0); Monocyte# 0.62 X10^3/uL; Monocyte% 5.3 % (0-10); NRBC Flagged by Analyzer 0 % (0-5); Neutrophil # 9.53 X10^3/uL (2.7-7.7); Neutrophil % 82.3 % (47-70); Platelet Count 179 K/mm3 (150-450); RBC Distribution Width CV 12.9 % (11.6-14.6); RBC Distribution Width SD 41.8 fl (35.1-43.9); Red Blood Count 4.57 M/mm3 (4.6-6.2); White Blood Count 11.6 K/mm3 (4.4-11.0)
[2023-08-16 14:56] LABS: Anion Gap 3 (5-15); BUN 14 mg/dL (7-18); BUN/Creat Ratio 12.8 RATIO (10-20); Calcium,Total 8.6 mg/dL (8.5-10.1); Chloride 111 mmol/L (98-107); Creatinine, Serum 1.09 mg/dL (0.70-1.30); EST Glomerular Filtration Rate 73 mL/min (>60); Est Glom Filt Rate - Afr Amer 88 mL/min (>60); Estimated Creatinine Clearance 85.08 ml/min; Glucose 105 mg/dL (74-106); Potassium 4.6 mmol/L (3.5-5.1); Sodium Level 142 mmol/L (136-145)
--- NOTE | 2023-08-16 15:55 | EX.ED.DYSGE1 ---
HPI History of Present Illness Chief Complaint: Dizziness Narrative Narrative: 62-year-old male presenting with dizziness. Normal he states that it started on his way back from [place] in the car with his and it only lasted a short time. He denies any headache associated with it. He did vomit initially either. He states after couple hours his dizziness resolved and he has a history of vertigo also indicating of it. Patient states he never had vertigo show severely however as he has today. It is lasted since this morning. He describes it as vertiginous dizziness. He has not tried any medications. [facility] Medical History Chest pain Hypothyroidism Pneumonia Vertigo Home Medications levothyroxine 125 mcg tablet 125 mcg PO DAILY 03/26/21 [History Last Taken Unknown] rosuvastatin 10 mg tablet (Crestor) 10 mg PO DAILY 03/26/21 [History Last Taken Unknown] meclizine 25 mg tablet 25 mg PO TID dizziness #14 tabs 08/16/23 [Rx Last Taken Unknown] promethazine 25 mg tablet 25 mg PO Q6H PRN nausea and vomiting #14 tabs 08/16/23 [Rx Last Taken Unknown] Allergy/AdvReac Type Severity Reaction Status Date / Time No Known Allergies Allergy Verified 04/30/21 03:40 Surgical History History of appendectomy Social History Smoking Status: Former smoker substance use type: does not use ROS ROS ED Constitutional Constitutional ED: Denies chills, fever(s) or sweats Eyes Eyes: Denies blurry vision or change in vision ENT ENT ED: Denies ear pain or sore throat Cardiovascular Cardiovascular: Denies chest pain, palpitations or racing heartbeat Respiratory/Chest Respiratory/Chest: Denies cough, dyspnea or sputum Gastrointestinal Gastrointestinal: Reports nausea and vomiting; Denies abdominal pain, constipation or diarrhea Genitourinary Genitourinary ED: Denies dysuria, hematuria or urinary frequency Musculoskeletal Musculoskeletal: Denies arthralgias, myalgias or neck pain Integumentary Denies abscess, Abrasions or rash Neurologic Neurologic: Denies headache(s), paresthesias or weakness Psychiatric Psychiatric: Denies anxiety, depression, suicidal ideation or suicidal thoughts Endocrine Endocrinology: Denies polydipsia or polyuria EXAM Physical Exam Const Vital Signs: 08/16/23 13:18 08/16/23 13:32 08/16/23 14:02 Temperature 97.7 F L Temperature Source Oral Pulse Rate 56 L 59 L Respiratory Rate 16 16 Respiratory Effort Normal Respiratory Pattern Normal Blood Pressure 186/73 H 155/71 H Blood Pressure Mean 110 99 Pulse Ox 92 92 Oxygen Delivery Method Room Air Room Air Positive well nourished General Appearance ED: NAD HEENT Reports moist mucous membranes HEENT Narrative: (+) Tank- hallpike w/ nystagmus Eyes PERRL and EOMs intact bilaterally Chest Wall inspection of chest normal Resp normal respiratory effort and clear to auscultation bilaterally Auscultation: Negative for rales, rhonchi or wheezes Cardio regular rhythm Rate: bradycardia GI normal to inspection, nondistended, normoactive bowel sounds Extremity normal to inspection Neuro oriented x3 and CN's II-XII intact bilaterally Sensorium / Orientation: alert Psych mental status grossly normal Skin no rashes or lesions noted MDM MDM MDM Narrative Medical decision making narrative: 62-year-old male presenting with vertigo. I was able to reproduce on examination. He has positive Tank-Hallpike. IV line was established. He was given IV fluids and meclizine is a's already received 4 of Zofran orally and a shot IM of Phenergan 25 mg reportedly. Patient's dizziness has improved somewhat with the Phenergan. Will obtain basic lab work as patient might be dehydrated from vomiting all day. CBC and BMP were unremarkable today. Reevaluation the patient is doing much better and he was able to stand up and move his head around. At this point I felt he was safe for discharge. He states he has an appoint with ENT tomorrow for allergy testing and I recommend he make this follow-up. Impression: 1. vertigo 2. Nausea/vomit Lab Data Attestation: I reviewed the patient's lab results. Labs: Laboratory Results - last 24 hr 08/16/23 14:36 WBC 11.6 H RBC 4.57 L Hgb 13.7 Hct 40.9 MCV 89.5 MCH 30.0 MCHC 33.5 RDW Std Deviation 41.8 RDW Coeff of Gray 12.9 Plt Count 179 MPV 9.3 Immature Gran % (Auto) 0.400 Neut % (Auto) 82.3 H Lymph % (Auto) 11.2 L [place] % (Auto) 5.3 Eos % (Auto) 0.5 Baso % (Auto) 0.3 Absolute Neuts (auto) 9.5 H Absolute Lymphs (auto) 1.30 Nucleated RBC % 0 Sodium 142 Potassium 4.6 Chloride 111 H Carbon Dioxide 28.0 Anion Gap 3 L BUN 14 Creatinine 1.09 Estim Creat Clear Calc 85.08 Est GFR (MDRD) Af Amer 88 Est GFR (MDRD) Non-Af 73 BUN/Creatinine Ratio 12.8 Glucose 105 Calcium 8.6 Discharge Plan Triage Chief Complaint: Dizziness ED Provider: Demetrius Healy Dx/Rx/DC Orders Instructions: ED Vertigo, Unspecified Prescriptions: New promethazine 25 mg tablet 25 mg PO Q6H PRN (Reason: nausea and vomiting) Qty: 14 0RF meclizine 25 mg tablet 25 mg PO TID Qty: 14 0RF No Action levothyroxine 125 mcg tablet 125 mcg PO DAILY rosuvastatin [Crestor] 10 mg tablet 10 mg PO DAILY Primary Care Provider: Chichi Narayan Referrals: Chichi Narayan DO [Primary Care Provider] - Disposition Disposition: Home, Self Care
[2023-08-16 16:00] VITALS: BP 165/83; PULSE 60; RESP 16; O2SAT 98
[2023-08-16 16:17] VITALS: BP 163/52; PULSE 65; RESP 16; TEMP 37.1; O2SAT 99
== END 2023-08-16 16:18 | disposition home or self-care (01) ==
PROVIDERS: Emergency Provider Student in an Organized Health Care Education/Training Program; PCP Internal Medicine; Visit Provider Student in an Organized Health Care Education/Training Program
DX: R42 Dizziness and giddiness (principal); R11.2 Nausea with vomiting, unspecified; Z87.891 Personal history of nicotine dependence; E03.9 Hypothyroidism, unspecified; Z79.899 Other long term (current) drug therapy; Z90.49 Acquired absence of other specified parts of digestive tract
CPT/HCPCS: 80048; 85025; 99284

== ENCOUNTER → 2023-09-21 | Outpatient (CLI) | payer OTHER, SELFPAY ==
--- NOTE | 2023-09-21 08:20 | MRI_ITS ---
STUDY: MRI BRAIN WITH AND WITHOUT CONTRAST (ATTENTION INTERNAL AUDITORY CANALS - I.A.C.''s) REASON FOR EXAM: Male, 62 years old. DIZZINESS,HEADACHES, VERTIGO, FULLNESS IN HEAD INTERMITTENTLY FOR YEARS TECHNIQUE: Standardized multiplanar fat and water weighted pulse sequences were obtained. IV Yes YES was administered for the contrast portion of the examination. COMPARISON: None. FINDINGS: Normal bilateral temporal bones. Normal bilateral internal auditory canals. There is no demonstrated intracanalicular or cisternal vestibular schwannoma (acoustic neuroma). There is no enhancement of the bilateral VIIth or VIIIth cranial nerves. Normal bilateral cochlea, vestibules and semicircular canals. Normal size of the ventricles and extra-axial spaces for the patient''s age. Normal white matter tracts of the supratentorial brain. Normal bilateral basal ganglia. Normal thalami. Normal flow voids within the major intracranial circulation suggesting patency by spin echo criteria. Normal venous enhancement. There is no enhancing intra-axial or extra-axial abnormality. There is no extra-axial fluid accumulation. Partial empty sella deformity of uncertain significance. Normal, infundibular stalk, optic chiasm and hypothalamus. Normal tectal plate and pineal gland. Normal midbrain, papo and medulla. Normal cerebellum. Normal basal cisterns. No demonstrated orbital abnormality, within the constraints of a routine brain study. Normal visualized paranasal sinuses. Normal calvarium and skull base. Normal visualized soft tissue structures. Normal visualized upper cervical spine. MRI/Brain W/WO Contrast IMPRESSION: Partial empty sella deformity of uncertain clinical significance. Otherwise normal unenhanced and enhanced MRI of the bilateral internal auditory canals (I.A.C''s). Electronically Signed: Juan Gamboa MD at 17:00 EDT ,
== END | disposition home or self-care (01) ==
PROVIDERS: PCP Internal Medicine; Referring Provider Otolaryngology; Visit Provider Otolaryngology
DX: R42 Dizziness and giddiness (principal); R51.9 Headache, unspecified
CPT/HCPCS: 70553

== ENCOUNTER → 2024-05-29 | Outpatient (CLI) | payer OTHER, SELFPAY ==
[2024-06-03 16:09] LABS: Lyme IgG P18 Ab Absent (.); Lyme IgG P23 Ab Absent (.); Lyme IgG P28 Ab Absent (.); Lyme IgG P30 Ab Absent (.); Lyme IgG P39 Ab Absent (.); Lyme IgG P41 Ab Absent (.); Lyme IgG P45 Ab Absent (.); Lyme IgG P58 Ab Absent (.); Lyme IgG P66 Ab Absent (.); Lyme IgG P93 Ab Absent (.); Lyme IgG WB Interpretation Negative (.); Lyme IgM P23 Ab Absent (.); Lyme IgM P39 Ab Present (.); Lyme IgM P41 Ab Absent (.); Lyme IgM WB Interpretation Negative (.)
== END | disposition home or self-care (01) ==
LOC: MTLAB 11:33
PROVIDERS: PCP Internal Medicine; Referring Provider Physician Assistant; Visit Provider Physician Assistant
DX: L30.9 Dermatitis, unspecified (principal)
CPT/HCPCS: 36415; 86617